=== PATIENT | female | born 1995 | race Caucasian/White ===

== ENCOUNTER 2017-09-27 21:27 | Emergency (ER) | payer OTHER ==
[2017-09-28 05:23] VITALS: BP 126/75
== END 2017-09-28 05:23 | disposition home or self-care (01) ==
LOC: ED 21:27
DX: B34.9 Viral infection, unspecified (principal)
CPT/HCPCS: 86308; 87804

== ENCOUNTER 2018-12-30 12:35 | Emergency (ER) | payer OTHER ==
[~2018-12-30] VITALS: Ht 154.9 cm; Wt 76.2 kg
[2018-12-30 12:56] VITALS: BP 155/94; Ht 154.9 cm; Wt 76.2 kg
== END 2018-12-30 15:13 | disposition home or self-care (01) ==
LOC: ED 12:35
DX: S39.011A Strain of muscle, fascia and tendon of abdomen, initial encounter (principal); W18.30XA Fall on same level, unspecified, initial encounter; Y93.66 Activity, soccer; Y92.322 Soccer field as the place of occurrence of the external cause; Y99.8 Other external cause status
CPT/HCPCS: J1885